=== PATIENT | male | born 1970 | race Caucasian/White ===

== ENCOUNTER 2022-09-22 08:23 | Emergency (ER) | payer OTHER ==
[~2022-09-22] VITALS: Ht 175.3 cm; Wt 81.6 kg
[2022-09-22] MEDS ORDERED: IBUPROFEN 600 MG TABLET ONE (08:29)
[2022-09-22] MEDS ORDERED: IBUPROFEN 600 MG TABLET PO ONE (08:30)
[2022-09-22] MEDS ORDERED: OMEP20TA5 PO (08:36)
[2022-09-22 08:41] VITALS: BP 134/80
== END 2022-09-22 08:42 | disposition home or self-care (01) ==
LOC: ER 08:23
DX: S83.92XA Sprain of unspecified site of left knee, initial encounter (principal); K21.9 Gastro-esophageal reflux disease without esophagitis; Z79.899 Other long term (current) drug therapy; V03.99XA Pedestrian with other conveyance injured in collision with car, pick-up truck or van, unspecified whether traffic or nontraffic accident, initial encounter; Y93.89 Activity, other specified; Y92.89 Other specified places as the place of occurrence of the external cause; Y99.8 Other external cause status
CPT/HCPCS: A4663